=== PATIENT | male | born 1960 | race Caucasian/White ===

== ENCOUNTER 2019-10-11 06:29 | Inpatient (IN) ==
[2019-10-11 06:55] LABS: INR 1.1; PT Patient Result 12.1 SECS (9.6-12.2)
[2019-10-11] MEDS ORDERED: DIAZEPAM 5 MG TABLET PO ONE (08:00)
[2019-10-11] MEDS ORDERED: DIAZEPAM 5 MG TABLET ONE (08:42)
[2019-10-11] MEDS: SODIUM CHLORIDE 0.45% 1,000 ML IV SCH (09:10)
[2019-10-11] MEDS ORDERED: DIAZEPAM 5 MG TABLET PO STA (11:22)
[2019-10-11] MEDS ORDERED: MIDAZOLAM 2 MG/2 ML VIAL ONE (14:14)
[2019-10-11] MEDS ORDERED: ALPRAZolam 0.5 MG TABLET PO ONE (14:16)
[2019-10-11] MEDS ORDERED: ACETAMINOPHEN 325 MG TABLET PO PRN (16:23)
[2019-10-11] MEDS ORDERED: ONDANSETRON 4 MG/2 ML VIAL IV PRN (16:23)
[2019-10-11] MEDS ORDERED: MORPHINE 4 MG/1 ML VIAL IV PRN (16:23)
[2019-10-11] MEDS ORDERED: PROMETHAZINE 25 MG/1 ML VIAL IM PRN (16:23)
[2019-10-11 16:33] LABS: Basophils # 0.1 10*3/uL (0.0-0.2); Basophils % 0.3 % (0.0-0.8); Eosinophils % 0.1 % (0.00-10.9); Hematocrit 40.2 VOL% (42.0-52.0); Hemoglobin 12.6 GM/DL (14.0-18.0); Immature Granulocytes % 2.6 %; Lymphocytes # 1.2 10*3/uL (1.4-4.0); Lymphocytes % 6.2 % (21.2-54.2); Mean Corpuscular HGB Conc 31.3 GM/DL (32-36); Mean Corpuscular Volume 77.8 FL (87-102); Mean Platelet Volume 9.8 FL (9.6-12.0); Monocytes % 6.7 % (1.7-12.7); Neutrophils % 84.1 % (38.7-73.9); Platelet Count 601 T/CUMM (130-400); Red Blood Count 5.17 MC/CUMM (3.8-5.5); Red Cell Distribution Width 19.4 % (9.3-17.3); White Blood Count 18.9 T/CUMM (4-12)
[2019-10-11] MEDS ORDERED: ALBUTEROL 2.5 MG/3 ML NEB RESP TX PRN (16:36)
[2019-10-11] MEDS ORDERED: ONDANSETRON 4 MG TABLET PO PRN (16:36)
[2019-10-11] MEDS ORDERED: HydrOXYzine PAMOATE 25 MG CAPSULE PO PRN (16:36)
[2019-10-11 16:59] LABS: Albumin 2.3 G/DL (3.4-5.0); Bilirubin,Total 1.5 MG/DL (0.2-1.0); Calcium 8.8 MG/DL (8.5-10.1); Osmolality,Calculated 278.2 MOS/KG (273-304)
[2019-10-11 17:38] LABS: Thyroid Stimulating Hormone 5.21 uIU/ml (0.358-3.74)
[2019-10-11] MEDS: DEXTROSE 5% NACL 0.9% 1,000 ML IV SCH (18:27)
[2019-10-11] MEDS: ACETAMINOPHEN 500 MG TABLET PO PRN (18:28)
[2019-10-11] MEDS: ASPIRIN EC 81 MG TABLET PO SCH (18:28)
[2019-10-11] MEDS: LORATADINE 10 MG TABLET PO SCH (18:28)
[2019-10-11] MEDS: methylPREDNISolone SOD SUC 40 MG/1 ML VIAL IV SCH (18:29)
[2019-10-11] MEDS: LEVOFLOXACIN INJ 750 MG in PREMIX 1 EACH IV SCH (18:37)
[2019-10-11] MEDS ORDERED: ALBUTEROL/IPRATROPIUM 3 ML NEB RESP TX SCH (19:00)
[2019-10-11] MEDS: LEVALBUTEROL 0.63 MG/3 ML NEB RESP TX SCH (19:47)
[2019-10-11] MEDS: DORNASE ALFA 2.5 MG/2.5 ML VIAL RESP TX SCH (19:47)
[2019-10-11] MEDS ORDERED: SODIUM CHLORIDE 0.9% 3,100 ML IV ONE (20:48)
[2019-10-11] MEDS ORDERED: traZODone 50 MG TABLET PO SCH (21:00)
[2019-10-11] MEDS: PIPERACILLIN/TAZOBACTAM 3,375 MG in SODIUM CHLORIDE 0.9% 100 ML IV SCH (21:40)
[2019-10-11] MEDS ORDERED: NITROGLYCERIN SL 0.4 MG TABLET SL ONE (21:57)
[2019-10-11] MEDS ORDERED: NOREPINEPHRINE 8 MG in SODIUM CHLORIDE 0.9% 242 ML IV PRN (22:00)
[2019-10-11 22:24] LABS: Allen Test Positive
[2019-10-11 22:48] LABS: ABG Base Excess -2.5 MMOL/L (-2.5-2.5); ABG HCO3 22.3 MMOL/L (20-26); ABG Oxygen Saturation 94.8 % (95-100); ABG PCO2 33.4 MM HG (35-48); ABG PH 7.416 (7.35-7.45); ABG PO2 73.6 MM HG (80-95); ABG TCO2 19.6 MMOL/L (23-27)
[2019-10-11] MEDS: GABAPENTIN 600 MG TABLET PO SCH (22:54)
[2019-10-11] MEDS: TAMSULOSIN 0.4 MG CAPSULE PO SCH (22:54)
[2019-10-11] MEDS: NYSTATIN 500,000 UNIT/5 ML UDCUP PO SCH (22:54)
[2019-10-12] MEDS: LEVALBUTEROL 0.63 MG/3 ML NEB RESP TX SCH ×4 (00:09→19:35)
[2019-10-12 00:52] LABS: Apearance,Urine CLEAR (Clear); Bilirubin,Urine Negative (Negative); Blood, Urine Small mg/dL (Negative); Glucose,Urine (UA) Negative (Negative); Hyaline Casts,Urine 1 /LPF (0-3); Ketones,Urine Negative (Negative); Mucus,Urine Occasional /LPF (Occasional); Nitrite,Urine Negative (Negative); Protein,Urine Negative; RBC,Urine 1 /HPF (0-4); Urine Color Straw (Yellow); Urine Specific Gravity 1.011 (1.001-1.035); Urine Urobilinogen < 2.0 EU/DL (0.2-1.0); WBC,Urine 1 /HPF (0-6)
[2019-10-12] MEDS: VANCOMYCIN INJ 1,500 MG in SODIUM CHLORIDE 0.9% 500 ML IV SCH ×2 (01:00→15:07)
[2019-10-12] MEDS: methylPREDNISolone SOD SUC 40 MG/1 ML VIAL IV SCH ×3 (02:30→17:39)
[2019-10-12] MEDS: ACETAMINOPHEN 500 MG TABLET PO PRN (02:30)
[2019-10-12 04:58] LABS: Basophils % 0.1 % (0.0-0.8); Eosinophils % 0.1 % (0.00-10.9); Hematocrit 32.3 VOL% (42.0-52.0); Immature Granulocytes % 1.6 %; Immature Granulocytes Absolute 0.27 #; Lymphocytes # 0.6 10*3/uL (1.4-4.0); Lymphocytes % 3.7 % (21.2-54.2); Mean Corpuscular Volume 77.6 FL (87-102); Mean Platelet Volume 9.4 FL (9.6-12.0); Monocytes % 6.5 % (1.7-12.7); Platelet Count 408 T/CUMM (130-400); Red Blood Count 4.16 MC/CUMM (3.8-5.5); Red Cell Distribution Width 18.9 % (9.3-17.3); White Blood Count 16.9 T/CUMM (4-12)
[2019-10-12] MEDS: DEXTROSE 5% NACL 0.9% 1,000 ML IV SCH ×2 (05:13→05:45)
[2019-10-12 05:15] LABS: Albumin 1.8 G/DL (3.4-5.0); Bilirubin,Total 0.9 MG/DL (0.2-1.0); Calcium 8.2 MG/DL (8.5-10.1); Osmolality,Calculated 281.8 MOS/KG (273-304); Risk Ratio 1.81; Total Protein 6.3 G/DL (6.4-8.3); VLDL CHOLESTEROL 12.8 MG/DL
[2019-10-12] MEDS: PIPERACILLIN/TAZOBACTAM 3,375 MG in SODIUM CHLORIDE 0.9% 100 ML IV SCH ×3 (05:15→21:39)
[2019-10-12 05:22] LABS: Free T4 (Free Thyroxine) 1.43 NG/DL (0.76-1.46)
[2019-10-12 05:23] LABS: Band Neutrophils 2 % (0-10); Lymphocytes 2 % (20-55); Myelocytes 1 %; Segmented Neutrophils 89 % (50-85); Total Cells Counted 100
[2019-10-12 05:24] LABS: Hypochromasia 1+; Microcytosis 1+; Ovalocytes Slight; Tear Drop Cells Slight
[2019-10-12 07:09] LABS: Troponin I < 0.015 NG/ML (0.00-0.045)
[2019-10-12] MEDS ORDERED: DEXTROSE 5% NACL 0.9% 1,000 ML IV SCH (07:09)
[2019-10-12 07:16] LABS: Total Protein (Chem) 8.2 G/DL (6.4-8.3)
[2019-10-12] MEDS ORDERED: FUROSEMIDE 20 MG/2 ML VIAL IV ONE (08:00)
[2019-10-12] MEDS: DORNASE ALFA 2.5 MG/2.5 ML VIAL RESP TX SCH ×2 (08:38→19:41)
[2019-10-12] MEDS: SODIUM CHLORIDE 0.45% 1,000 ML IV SCH (08:41)
[2019-10-12 08:55] LABS: Albumin (SPE) 3.6 G/DL (3.2-5.3); Albumin (SPE) Rel % 43.3 %; Alpha 1 (SPE) 0.3 G/DL (0.1-0.4); Alpha 1 (SPE) Rel % 4.2 %; Alpha 2 (SPE) 1.3 G/DL (0.4-1.0); Alpha 2 (SPE) Rel % 15.4 %; Beta (SPE) 1.1 G/DL (0.5-1.1); Beta (SPE) Rel % 12.9 %; Gamma (SPE) Rel % 24.2 %
[2019-10-12] MEDS ORDERED: PANTOPRAZOLE 40 MG TABLET PO SCH (09:00)
[2019-10-12] MEDS: ALPRAZolam 0.5 MG TABLET PO PRN (09:12)
[2019-10-12] MEDS: LACTATED RINGERS 1,000 ML IV SCH (09:12)
[2019-10-12] MEDS: GABAPENTIN 600 MG TABLET PO SCH ×2 (09:12→21:18)
[2019-10-12] MEDS: NYSTATIN 500,000 UNIT/5 ML UDCUP PO SCH ×4 (09:12→21:19)
[2019-10-12] MEDS: PANTOPRAZOLE 40 MG TABLET PO SCH (09:13)
[2019-10-12] MEDS: ALLOPURINOL 300 MG TABLET PO SCH (09:13)
[2019-10-12] MEDS: ASPIRIN EC 81 MG TABLET PO SCH (09:13)
[2019-10-12] MEDS: LORATADINE 10 MG TABLET PO SCH (09:13)
[2019-10-12] MEDS ORDERED: ALUMINUM/MAGNES/SIMETH MAX STR 30 ML UDCUP PO PRN (15:47)
[2019-10-12] MEDS: LEVOFLOXACIN INJ 750 MG in PREMIX 1 EACH IV SCH (17:38)
[2019-10-12] MEDS: ENOXAPARIN 40 MG/0.4 ML SYRINGE SUBCUT SCH (17:39)
[2019-10-12 18:31] LABS: Folate 6.3 NG/ML (5.4-24.0)
[2019-10-12 19:26] LABS: Hepatitis B Surface Ag Quant < 0.10 Index; Hepatitis B Surface Ag Result Negative (Negative); Hepatitis C Virus Ab Quant 0.17 Index; Hepatitis C Virus Ab Result Negative (Negative)
[2019-10-12] MEDS: MIRTAZAPINE 15 MG TABLET PO SCH (21:18)
[2019-10-12] MEDS: TAMSULOSIN 0.4 MG CAPSULE PO SCH (21:19)
[2019-10-13] MEDS: LEVALBUTEROL 0.63 MG/3 ML NEB RESP TX SCH ×4 (00:36→20:21)
[2019-10-13] MEDS: methylPREDNISolone SOD SUC 40 MG/1 ML VIAL IV SCH ×4 (02:12→21:43)
[2019-10-13] MEDS: VANCOMYCIN INJ 1,500 MG in SODIUM CHLORIDE 0.9% 500 ML IV SCH ×2 (02:15→13:41)
[2019-10-13 05:03] LABS: Basophils % 0.2 % (0.0-0.8); Hematocrit 30.9 VOL% (42.0-52.0); Hemoglobin 9.8 GM/DL (14.0-18.0); Immature Granulocytes % 2.3 %; Immature Granulocytes Absolute 0.46 #; Lymphocytes # 0.7 10*3/uL (1.4-4.0); Lymphocytes % 3.5 % (21.2-54.2); Mean Corpuscular HGB Conc 31.7 GM/DL (32-36); Mean Corpuscular Volume 77.4 FL (87-102); Mean Platelet Volume 9.7 FL (9.6-12.0); Monocytes % 3.8 % (1.7-12.7); Neutrophils % 90.2 % (38.7-73.9); Platelet Count 481 T/CUMM (130-400); Red Blood Count 3.99 MC/CUMM (3.8-5.5); White Blood Count 19.9 T/CUMM (4-12)
[2019-10-13 05:40] LABS: Albumin 1.7 G/DL (3.4-5.0); Bilirubin,Total 0.5 MG/DL (0.2-1.0); Calcium 8.7 MG/DL (8.5-10.1); Total Protein 6.5 G/DL (6.4-8.3)
[2019-10-13] MEDS: PIPERACILLIN/TAZOBACTAM 3,375 MG in SODIUM CHLORIDE 0.9% 100 ML IV SCH ×3 (06:27→21:44)
[2019-10-13 06:36] LABS: Lymphocytes 1 % (20-55); Platelet Estimate Normal; Segmented Neutrophils 96 % (50-85); Total Cells Counted 100
[2019-10-13 06:37] LABS: Anisocytosis Slight; Hypochromasia 1+; Microcytosis 2+
[2019-10-13 06:38] LABS: Ovalocytes Slight
[2019-10-13 07:45] LABS: Total Protein 24 Hr Ur Result 1044 MG/24HR (0-149.1); Total Volume,Urine 4350 ML (400-2000)
[2019-10-13] MEDS: DORNASE ALFA 2.5 MG/2.5 ML VIAL RESP TX SCH ×2 (07:46→20:31)
[2019-10-13] MEDS: NYSTATIN 500,000 UNIT/5 ML UDCUP PO SCH ×4 (09:11→21:43)
[2019-10-13] MEDS: LORATADINE 10 MG TABLET PO SCH (09:12)
[2019-10-13] MEDS: ALPRAZolam 0.5 MG TABLET PO PRN ×2 (09:12→15:35)
[2019-10-13] MEDS: GABAPENTIN 600 MG TABLET PO SCH ×2 (09:12→21:43)
[2019-10-13] MEDS: ASPIRIN EC 81 MG TABLET PO SCH (09:12)
[2019-10-13] MEDS: PANTOPRAZOLE 40 MG TABLET PO SCH (09:12)
[2019-10-13] MEDS: LACTATED RINGERS 1,000 ML IV SCH (09:19)
[2019-10-13] MEDS: ALLOPURINOL 300 MG TABLET PO SCH (09:26)
[2019-10-13] MEDS ORDERED: GLUCAGON 1 MG VIAL IM PRN (09:57)
[2019-10-13] MEDS ORDERED: DEXTROSE 50% 25 GM/50 ML VIAL IV PRN (09:57)
[2019-10-13] MEDS: INSULIN REGULAR 100 UNIT/ML SUBCUT SCH ×3 (12:28→21:42)
[2019-10-13] MEDS: ENOXAPARIN 40 MG/0.4 ML SYRINGE SUBCUT SCH (15:35)
[2019-10-13] MEDS: LEVOFLOXACIN INJ 750 MG in PREMIX 1 EACH IV SCH (17:15)
[2019-10-13] MEDS: TAMSULOSIN 0.4 MG CAPSULE PO SCH (21:43)
[2019-10-13] MEDS: MIRTAZAPINE 15 MG TABLET PO SCH (21:47)
[2019-10-14] MEDS: LEVALBUTEROL 0.63 MG/3 ML NEB RESP TX SCH ×4 (00:33→19:40)
[2019-10-14] MEDS: VANCOMYCIN INJ 1,500 MG in SODIUM CHLORIDE 0.9% 500 ML IV SCH ×2 (01:39→17:43)
[2019-10-14] MEDS: PIPERACILLIN/TAZOBACTAM 3,375 MG in SODIUM CHLORIDE 0.9% 100 ML IV SCH ×3 (05:00→22:38)
[2019-10-14 05:57] LABS: Basophils # 0.1 10*3/uL (0.0-0.2); Basophils % 0.3 % (0.0-0.8); Hematocrit 33.5 VOL% (42.0-52.0); Hemoglobin 10.3 GM/DL (14.0-18.0); Immature Granulocytes % 4.5 %; Immature Granulocytes Absolute 1.03 #; Lymphocytes # 0.6 10*3/uL (1.4-4.0); Lymphocytes % 2.8 % (21.2-54.2); Mean Corpuscular HGB Conc 30.7 GM/DL (32-36); Mean Corpuscular Volume 78.6 FL (87-102); Mean Platelet Volume 9.5 FL (9.6-12.0); Monocytes % 3.1 % (1.7-12.7); Neutrophils % 89.3 % (38.7-73.9); Platelet Count 520 T/CUMM (130-400); Red Blood Count 4.26 MC/CUMM (3.8-5.5); Red Cell Distribution Width 19.2 % (9.3-17.3); White Blood Count 22.8 T/CUMM (4-12)
[2019-10-14 06:27] LABS: Albumin 1.7 G/DL (3.4-5.0); Calcium 9.1 MG/DL (8.5-10.1); Osmolality,Calculated 287.8 MOS/KG (273-304); Total Protein 6.7 G/DL (6.4-8.3)
[2019-10-14 07:08] LABS: Lymphocytes 4 % (20-55); Platelet Estimate Increased; Segmented Neutrophils 95 % (50-85); Total Cells Counted 100
[2019-10-14] MEDS: methylPREDNISolone SOD SUC 40 MG/1 ML VIAL IV SCH ×2 (08:19→22:35)
[2019-10-14] MEDS: LORATADINE 10 MG TABLET PO SCH (08:20)
[2019-10-14] MEDS: PANTOPRAZOLE 40 MG TABLET PO SCH (08:21)
[2019-10-14] MEDS: GABAPENTIN 600 MG TABLET PO SCH ×2 (08:22→22:29)
[2019-10-14] MEDS: ALLOPURINOL 300 MG TABLET PO SCH (08:22)
[2019-10-14] MEDS: ASPIRIN EC 81 MG TABLET PO SCH (08:22)
[2019-10-14] MEDS: NYSTATIN 500,000 UNIT/5 ML UDCUP PO SCH ×4 (08:24→22:35)
[2019-10-14] MEDS: INSULIN REGULAR 100 UNIT/ML SUBCUT SCH ×4 (08:28→22:35)
[2019-10-14] MEDS: ALPRAZolam 0.5 MG TABLET PO PRN ×2 (08:29→17:52)
[2019-10-14] MEDS: DORNASE ALFA 2.5 MG/2.5 ML VIAL RESP TX SCH ×2 (09:00→19:40)
[2019-10-14 09:12] LABS: Immuno Free Light Chain Kappa 4.65 MG/DL (0.33-1.94); Immuno Free Light Chain Lambda 2.59 MG/DL (0.57-2.63); Immuno Free Light Chain Ratio 1.8 MG/DL (0.26-1.65)
[2019-10-14] MEDS ORDERED: SODIUM CHLORIDE 0.9% 250 ML IV ONE (10:31)
[2019-10-14] MEDS ORDERED: MAGNESIUM HYDROXIDE SUSP 30 ML UDCUP PO PRN (12:45)
[2019-10-14] MEDS: busPIRone 5 MG TABLET PO SCH ×2 (13:27→22:30)
[2019-10-14] MEDS: DOCUSATE SODIUM 100 MG CAPSULE PO SCH ×2 (13:27→22:29)
[2019-10-14] MEDS: FLUCONAZOLE 200 MG TABLET PO SCH (13:27)
[2019-10-14] MEDS: ENOXAPARIN 40 MG/0.4 ML SYRINGE SUBCUT SCH (17:43)
[2019-10-14] MEDS: TAMSULOSIN 0.4 MG CAPSULE PO SCH (22:29)
[2019-10-14] MEDS: DOXYCYCLINE HYCLATE 100 MG CAPSULE PO SCH (22:48)
[2019-10-14] MEDS: MIRTAZAPINE 15 MG TABLET PO SCH (22:48)
[2019-10-15] MEDS: LEVALBUTEROL 0.63 MG/3 ML NEB RESP TX SCH ×4 (00:09→20:15)
[2019-10-15 05:18] LABS: Basophils # 0.1 10*3/uL (0.0-0.2); Basophils % 0.5 % (0.0-0.8); Hematocrit 34.8 VOL% (42.0-52.0); Hemoglobin 10.8 GM/DL (14.0-18.0); Immature Granulocytes % 6.4 %; Immature Granulocytes Absolute 1.27 #; Lymphocytes # 0.9 10*3/uL (1.4-4.0); Lymphocytes % 4.5 % (21.2-54.2); Mean Corpuscular Volume 79.3 FL (87-102); Mean Platelet Volume 9.2 FL (9.6-12.0); Monocytes % 3.9 % (1.7-12.7); Neutrophils % 84.7 % (38.7-73.9); Platelet Count 473 T/CUMM (130-400); Red Blood Count 4.39 MC/CUMM (3.8-5.5); Red Cell Distribution Width 19.5 % (9.3-17.3); White Blood Count 19.9 T/CUMM (4-12)
[2019-10-15 05:35] LABS: Bilirubin,Total 0.5 MG/DL (0.2-1.0); Calcium 8.8 MG/DL (8.5-10.1); Osmolality,Calculated 291.3 MOS/KG (273-304)
[2019-10-15 05:41] LABS: Hypochromasia 1+; Lymphocytes 4 % (20-55); Microcytosis 1+; Myelocytes 2 %; Ovalocytes Slight; Segmented Neutrophils 91 % (50-85); Total Cells Counted 100
[2019-10-15] MEDS: PIPERACILLIN/TAZOBACTAM 3,375 MG in SODIUM CHLORIDE 0.9% 100 ML IV SCH ×3 (06:07→21:27)
[2019-10-15] MEDS: DORNASE ALFA 2.5 MG/2.5 ML VIAL RESP TX SCH ×2 (07:02→20:15)
[2019-10-15] MEDS: DOXYCYCLINE HYCLATE 100 MG CAPSULE PO SCH ×2 (08:38→20:13)
[2019-10-15] MEDS: ALPRAZolam 0.5 MG TABLET PO PRN ×2 (08:38→20:22)
[2019-10-15] MEDS: ALLOPURINOL 300 MG TABLET PO SCH (08:38)
[2019-10-15] MEDS: busPIRone 5 MG TABLET PO SCH ×2 (08:38→20:13)
[2019-10-15] MEDS: DOCUSATE SODIUM 100 MG CAPSULE PO SCH ×2 (08:38→20:14)
[2019-10-15] MEDS: GABAPENTIN 600 MG TABLET PO SCH ×2 (08:39→20:13)
[2019-10-15] MEDS: FLUCONAZOLE 200 MG TABLET PO SCH (08:39)
[2019-10-15] MEDS: LORATADINE 10 MG TABLET PO SCH (08:39)
[2019-10-15] MEDS: ASPIRIN EC 81 MG TABLET PO SCH (08:39)
[2019-10-15] MEDS: NYSTATIN 500,000 UNIT/5 ML UDCUP PO SCH ×4 (08:39→20:13)
[2019-10-15] MEDS: PANTOPRAZOLE 40 MG TABLET PO SCH (08:39)
[2019-10-15] MEDS: INSULIN REGULAR 100 UNIT/ML SUBCUT SCH ×4 (08:40→20:11)
[2019-10-15] MEDS: methylPREDNISolone SOD SUC 40 MG/1 ML VIAL IV SCH ×2 (08:40→20:14)
[2019-10-15] MEDS: VANCOMYCIN INJ 1,500 MG in SODIUM CHLORIDE 0.9% 500 ML IV SCH (09:55)
[2019-10-15] MEDS ORDERED: SODIUM POLYSTYRENE SULFATE 15 GM/60 ML BOTTLE PO STA (13:32)
[2019-10-15] MEDS: ENOXAPARIN 40 MG/0.4 ML SYRINGE SUBCUT SCH (16:49)
[2019-10-15] MEDS: MIRTAZAPINE 15 MG TABLET PO SCH (20:13)
[2019-10-15] MEDS: TAMSULOSIN 0.4 MG CAPSULE PO SCH (20:14)
[2019-10-16] MEDS: LEVALBUTEROL 0.63 MG/3 ML NEB RESP TX SCH ×4 (00:27→19:04)
[2019-10-16] MEDS: VANCOMYCIN INJ 1,500 MG in SODIUM CHLORIDE 0.9% 500 ML IV SCH ×2 (03:01→21:18)
[2019-10-16] MEDS: PIPERACILLIN/TAZOBACTAM 3,375 MG in SODIUM CHLORIDE 0.9% 100 ML IV SCH ×3 (06:30→21:21)
[2019-10-16 06:32] LABS: Basophils # 0.1 10*3/uL (0.0-0.2); Basophils % 0.7 % (0.0-0.8); Hematocrit 33.1 VOL% (42.0-52.0); Hemoglobin 10.5 GM/DL (14.0-18.0); Immature Granulocytes % 9.6 %; Immature Granulocytes Absolute 1.87 #; Lymphocytes # 1.3 10*3/uL (1.4-4.0); Lymphocytes % 6.4 % (21.2-54.2); Mean Corpuscular HGB Conc 31.7 GM/DL (32-36); Mean Corpuscular Volume 78.6 FL (87-102); Mean Platelet Volume 9.5 FL (9.6-12.0); Monocytes % 3.7 % (1.7-12.7); Neutrophils % 79.6 % (38.7-73.9); Platelet Count 453 T/CUMM (130-400); Red Blood Count 4.21 MC/CUMM (3.8-5.5); Red Cell Distribution Width 19.6 % (9.3-17.3); White Blood Count 19.4 T/CUMM (4-12)
[2019-10-16 07:00] LABS: Hypochromasia 1+; Lymphocytes 4 % (20-55); Microcytosis 1+; Myelocytes 4 %; Segmented Neutrophils 89 % (50-85); Total Cells Counted 100
[2019-10-16 07:01] LABS: Albumin 1.9 G/DL (3.4-5.0); Bilirubin,Total 0.7 MG/DL (0.2-1.0); Calcium 8.5 MG/DL (8.5-10.1); Osmolality,Calculated 291.3 MOS/KG (273-304); Platelet Estimate Increased; Total Protein 6.4 G/DL (6.4-8.3)
[2019-10-16] MEDS: DORNASE ALFA 2.5 MG/2.5 ML VIAL RESP TX SCH ×2 (07:26→19:06)
[2019-10-16] MEDS: LORATADINE 10 MG TABLET PO SCH (08:44)
[2019-10-16] MEDS: NYSTATIN 500,000 UNIT/5 ML UDCUP PO SCH ×4 (08:44→21:20)
[2019-10-16] MEDS: ALPRAZolam 0.5 MG TABLET PO PRN ×3 (08:45→21:35)
[2019-10-16] MEDS: DOCUSATE SODIUM 100 MG CAPSULE PO SCH ×2 (08:45→21:21)
[2019-10-16] MEDS: ALLOPURINOL 300 MG TABLET PO SCH (08:45)
[2019-10-16] MEDS: busPIRone 5 MG TABLET PO SCH ×2 (08:45→21:21)
[2019-10-16] MEDS: ASPIRIN EC 81 MG TABLET PO SCH (08:45)
[2019-10-16] MEDS: FLUCONAZOLE 200 MG TABLET PO SCH (08:45)
[2019-10-16] MEDS: GABAPENTIN 600 MG TABLET PO SCH ×2 (08:46→21:20)
[2019-10-16] MEDS: INSULIN REGULAR 100 UNIT/ML SUBCUT SCH ×4 (08:46→21:21)
[2019-10-16] MEDS: DOXYCYCLINE HYCLATE 100 MG CAPSULE PO SCH ×2 (08:46→21:19)
[2019-10-16] MEDS: PANTOPRAZOLE 40 MG TABLET PO SCH (08:46)
[2019-10-16] MEDS: methylPREDNISolone SOD SUC 40 MG/1 ML VIAL IV SCH ×2 (08:47→21:19)
[2019-10-16] MEDS: ENOXAPARIN 40 MG/0.4 ML SYRINGE SUBCUT SCH (17:14)
[2019-10-16] MEDS: MIRTAZAPINE 15 MG TABLET PO SCH (21:19)
[2019-10-16] MEDS: TAMSULOSIN 0.4 MG CAPSULE PO SCH (21:22)
[2019-10-17] MEDS: LEVALBUTEROL 0.63 MG/3 ML NEB RESP TX SCH ×4 (00:54→20:36)
[2019-10-17] MEDS: PIPERACILLIN/TAZOBACTAM 3,375 MG in SODIUM CHLORIDE 0.9% 100 ML IV SCH ×3 (05:07→21:41)
[2019-10-17 06:55] LABS: Basophils # 0.2 10*3/uL (0.0-0.2); Basophils % 0.7 % (0.0-0.8); Hematocrit 33.4 VOL% (42.0-52.0); Hemoglobin 10.4 GM/DL (14.0-18.0); Immature Granulocytes % 10.2 %; Immature Granulocytes Absolute 2.28 #; Lymphocytes # 1.4 10*3/uL (1.4-4.0); Lymphocytes % 6.1 % (21.2-54.2); Mean Corpuscular HGB Conc 31.1 GM/DL (32-36); Mean Platelet Volume 9.1 FL (9.6-12.0); Monocytes % 3.1 % (1.7-12.7); Neutrophils % 79.9 % (38.7-73.9); Platelet Count 405 T/CUMM (130-400); Red Blood Count 4.23 MC/CUMM (3.8-5.5); Red Cell Distribution Width 19.7 % (9.3-17.3); White Blood Count 22.4 T/CUMM (4-12)
[2019-10-17 07:16] LABS: Hypochromasia 1+; Lymphocytes 7 % (20-55); Metamyelocytes 2 %; Microcytosis 1+; Segmented Neutrophils 89 % (50-85); Total Cells Counted 100
[2019-10-17 07:17] LABS: Ovalocytes Slight; Platelet Estimate Increased
[2019-10-17] MEDS: DORNASE ALFA 2.5 MG/2.5 ML VIAL RESP TX SCH ×2 (07:19→20:40)
[2019-10-17 07:32] LABS: Alanine Aminotransferase 103 U/L (16-61); Albumin 1.9 G/DL (3.4-5.0); Alkaline Phosphatase 118 U/L (45-117); Aspartate Amino Transferase 14 U/L (0-37); Bilirubin,Total < 0.39 MG/DL (0.2-1.0); Blood Urea Nitrogen 42 MG/DL (7-18); Calcium 8.7 MG/DL (8.5-10.1); Estimated Glom Filtration Rate 79 ML/MIN; Glucose 154 MG/DL (74-106); Osmolality,Calculated 290.5 MOS/KG (273-304); Total Protein 6.1 G/DL (6.4-8.3)
[2019-10-17 08:40] LABS: Albumin (UPE) 301.7 MG/24H; Albumin (UPE) Rel % 28.9 %; Alpha 1 (UPE) 67.9 MG/24H; Alpha 1 (UPE) Rel % 6.5 %; Alpha 2 (UPE) 305.9 MG/24H; Alpha 2 (UPE) Rel % 29.3 %; Beta (UPE) 286.1 MG/24H; Beta (UPE) Rel % 27.4 %; Gamma (UPE) 82.5 MG/24H; Gamma (UPE) Rel % 7.9 %
[2019-10-17] MEDS: DOXYCYCLINE HYCLATE 100 MG CAPSULE PO SCH ×2 (09:31→21:41)
[2019-10-17] MEDS: busPIRone 5 MG TABLET PO SCH ×2 (09:31→21:40)
[2019-10-17] MEDS: ALLOPURINOL 300 MG TABLET PO SCH (09:32)
[2019-10-17] MEDS: PANTOPRAZOLE 40 MG TABLET PO SCH (09:32)
[2019-10-17] MEDS: FLUCONAZOLE 200 MG TABLET PO SCH (09:32)
[2019-10-17] MEDS: DOCUSATE SODIUM 100 MG CAPSULE PO SCH ×2 (09:32→21:41)
[2019-10-17] MEDS: GABAPENTIN 600 MG TABLET PO SCH ×2 (09:32→21:40)
[2019-10-17] MEDS: LORATADINE 10 MG TABLET PO SCH (09:32)
[2019-10-17] MEDS: ASPIRIN EC 81 MG TABLET PO SCH (09:32)
[2019-10-17] MEDS: INSULIN REGULAR 100 UNIT/ML SUBCUT SCH ×4 (09:33→23:08)
[2019-10-17] MEDS: NYSTATIN 500,000 UNIT/5 ML UDCUP PO SCH ×4 (09:34→21:40)
[2019-10-17] MEDS: ALPRAZolam 0.5 MG TABLET PO PRN ×3 (09:38→21:41)
[2019-10-17] MEDS: VANCOMYCIN INJ 1,500 MG in SODIUM CHLORIDE 0.9% 500 ML IV SCH ×2 (11:12→21:39)
[2019-10-17] MEDS: methylPREDNISolone SOD SUC 40 MG/1 ML VIAL IV SCH ×2 (11:12→21:41)
[2019-10-17] MEDS: carvediloL 6.25 MG TABLET PO SCH ×2 (13:14→21:41)
[2019-10-17] MEDS: ENOXAPARIN 40 MG/0.4 ML SYRINGE SUBCUT SCH (18:25)
[2019-10-17] MEDS: TAMSULOSIN 0.4 MG CAPSULE PO SCH (21:40)
[2019-10-17] MEDS: MIRTAZAPINE 15 MG TABLET PO SCH (21:41)
[2019-10-18] MEDS: LEVALBUTEROL 0.63 MG/3 ML NEB RESP TX SCH ×4 (00:43→19:41)
[2019-10-18 05:33] LABS: Basophils # 0.1 10*3/uL (0.0-0.2); Basophils % 0.5 % (0.0-0.8); Hematocrit 33.2 VOL% (42.0-52.0); Hemoglobin 10.3 GM/DL (14.0-18.0); Immature Granulocytes Absolute 2.09 #; Lymphocytes # 1.2 10*3/uL (1.4-4.0); Lymphocytes % 5.1 % (21.2-54.2); Mean Corpuscular Volume 79.2 FL (87-102); Mean Platelet Volume 9.6 FL (9.6-12.0); Monocytes % 2.5 % (1.7-12.7); Neutrophils % 82.9 % (38.7-73.9); Platelet Count 376 T/CUMM (130-400); Red Blood Count 4.19 MC/CUMM (3.8-5.5); Red Cell Distribution Width 20.4 % (9.3-17.3); White Blood Count 23.2 T/CUMM (4-12)
[2019-10-18] MEDS: PIPERACILLIN/TAZOBACTAM 3,375 MG in SODIUM CHLORIDE 0.9% 100 ML IV SCH ×3 (05:33→21:26)
[2019-10-18 05:36] LABS: Bilirubin,Total 0.4 MG/DL (0.2-1.0); Calcium 8.4 MG/DL (8.5-10.1)
[2019-10-18 05:59] LABS: Band Neutrophils 1 % (0-10); Hypochromasia 1+; Lymphocytes 7 % (20-55); Myelocytes 1 %; Segmented Neutrophils 88 % (50-85); Total Cells Counted 100
[2019-10-18 06:00] LABS: Anisocytosis 1+; Microcytosis 1+; Ovalocytes Slight
[2019-10-18] MEDS ORDERED: MIDAZOLAM 2 MG/2 ML VIAL ONE ×2 (06:55→08:32)
[2019-10-18] MEDS ORDERED: MEPERIDINE 50 MG/1 ML VIAL IM ONE (07:00)
[2019-10-18] MEDS ORDERED: PROMETHAZINE 25 MG/1 ML VIAL IM ONE (07:00)
[2019-10-18] MEDS: DORNASE ALFA 2.5 MG/2.5 ML VIAL RESP TX SCH ×2 (07:29→19:41)
[2019-10-18] MEDS ORDERED: MIDAZOLAM 2 MG/2 ML VIAL IV ONE (07:30)
[2019-10-18] MEDS ORDERED: LIDOCAINE 2% VISCOUS 100 ML BOTTLE SWISH/SPIT ONE (07:30)
[2019-10-18] MEDS ORDERED: LIDOCAINE 2% 20 ML VIAL RESP TX ONE (07:30)
[2019-10-18] MEDS ORDERED: LIDOCAINE 1% 20 ML VIAL MISC INJ ONE (07:30)
[2019-10-18] MEDS ORDERED: hydrALAZINE 20 MG/1 ML VIAL IV PRN (07:56)
[2019-10-18] MEDS: methylPREDNISolone SOD SUC 40 MG/1 ML VIAL IV SCH ×2 (10:20→20:56)
[2019-10-18] MEDS: NYSTATIN 500,000 UNIT/5 ML UDCUP PO SCH ×4 (10:20→20:56)
[2019-10-18] MEDS: DOCUSATE SODIUM 100 MG CAPSULE PO SCH ×2 (10:21→20:58)
[2019-10-18] MEDS: ASPIRIN EC 81 MG TABLET PO SCH (10:21)
[2019-10-18] MEDS: FLUCONAZOLE 200 MG TABLET PO SCH (10:21)
[2019-10-18] MEDS: GABAPENTIN 600 MG TABLET PO SCH ×2 (10:21→20:58)
[2019-10-18] MEDS: ALLOPURINOL 300 MG TABLET PO SCH (10:21)
[2019-10-18] MEDS: PANTOPRAZOLE 40 MG TABLET PO SCH (10:21)
[2019-10-18] MEDS: LORATADINE 10 MG TABLET PO SCH (10:21)
[2019-10-18] MEDS: carvediloL 6.25 MG TABLET PO SCH ×2 (10:21→20:58)
[2019-10-18] MEDS: INSULIN REGULAR 100 UNIT/ML SUBCUT SCH ×4 (10:22→20:56)
[2019-10-18] MEDS: DOXYCYCLINE HYCLATE 100 MG CAPSULE PO SCH ×2 (10:28→20:58)
[2019-10-18] MEDS: ALPRAZolam 0.5 MG TABLET PO PRN ×3 (10:28→20:57)
[2019-10-18] MEDS: busPIRone 5 MG TABLET PO SCH ×2 (10:28→20:57)
[2019-10-18] MEDS: VANCOMYCIN INJ 1,500 MG in SODIUM CHLORIDE 0.9% 500 ML IV SCH ×3 (11:27→21:25)
[2019-10-18] MEDS: ENOXAPARIN 40 MG/0.4 ML SYRINGE SUBCUT SCH (17:45)
[2019-10-18 19:56] LABS: QuantiFERON-Tb Gold Pl Indeterminate (Negative); TB2 Ag Minus Result 0 IU/mL
[2019-10-18] MEDS: TAMSULOSIN 0.4 MG CAPSULE PO SCH (20:57)
[2019-10-18] MEDS: MIRTAZAPINE 15 MG TABLET PO SCH (20:57)
[2019-10-19] MEDS: PIPERACILLIN/TAZOBACTAM 3,375 MG in SODIUM CHLORIDE 0.9% 100 ML IV SCH (06:21)
[2019-10-19] MEDS: LEVALBUTEROL 0.63 MG/3 ML NEB RESP TX SCH ×3 (08:03→19:20)
[2019-10-19] MEDS: DORNASE ALFA 2.5 MG/2.5 ML VIAL RESP TX SCH ×2 (08:11→19:27)
[2019-10-19 08:30] LABS: Basophils # 0.1 10*3/uL (0.0-0.2); Basophils % 0.5 % (0.0-0.8); Hemoglobin 11.4 GM/DL (14.0-18.0); Immature Granulocytes % 8.4 %; Immature Granulocytes Absolute 2.23 #; Lymphocytes # 1.4 10*3/uL (1.4-4.0); Lymphocytes % 5.2 % (21.2-54.2); Mean Corpuscular HGB Conc 30.8 GM/DL (32-36); Mean Corpuscular Volume 80.1 FL (87-102); Mean Platelet Volume 9.2 FL (9.6-12.0); Monocytes % 3.2 % (1.7-12.7); Neutrophils % 82.7 % (38.7-73.9); Platelet Count 400 T/CUMM (130-400); Red Blood Count 4.62 MC/CUMM (3.8-5.5); Red Cell Distribution Width 21.2 % (9.3-17.3); White Blood Count 26.6 T/CUMM (4-12)
[2019-10-19] MEDS: INSULIN REGULAR 100 UNIT/ML SUBCUT SCH ×4 (08:43→21:37)
[2019-10-19 08:52] LABS: Hypochromasia 1+; Lymphocytes 6 % (20-55); Platelet Estimate Adequate; Segmented Neutrophils 86 % (50-85); Total Cells Counted 100
[2019-10-19 08:53] LABS: Microcytosis 1+
[2019-10-19 08:55] LABS: Calcium 8.5 MG/DL (8.5-10.1); Osmolality,Calculated 291.3 MOS/KG (273-304)
[2019-10-19] MEDS: methylPREDNISolone SOD SUC 40 MG/1 ML VIAL IV SCH ×2 (09:23→21:36)
[2019-10-19] MEDS: carvediloL 6.25 MG TABLET PO SCH ×2 (09:28→21:36)
[2019-10-19] MEDS: LORATADINE 10 MG TABLET PO SCH (09:28)
[2019-10-19] MEDS: busPIRone 5 MG TABLET PO SCH ×2 (09:28→21:35)
[2019-10-19] MEDS: ASPIRIN EC 81 MG TABLET PO SCH (09:28)
[2019-10-19] MEDS: DOCUSATE SODIUM 100 MG CAPSULE PO SCH ×2 (09:28→21:36)
[2019-10-19] MEDS: GABAPENTIN 600 MG TABLET PO SCH ×2 (09:29→21:36)
[2019-10-19] MEDS: PANTOPRAZOLE 40 MG TABLET PO SCH (09:29)
[2019-10-19] MEDS: FLUCONAZOLE 200 MG TABLET PO SCH (09:29)
[2019-10-19] MEDS: ALLOPURINOL 300 MG TABLET PO SCH (09:29)
[2019-10-19] MEDS: NYSTATIN 500,000 UNIT/5 ML UDCUP PO SCH ×4 (09:29→21:42)
[2019-10-19] MEDS: DOXYCYCLINE HYCLATE 100 MG CAPSULE PO SCH ×2 (09:29→21:35)
[2019-10-19] MEDS: VANCOMYCIN INJ 1,500 MG in SODIUM CHLORIDE 0.9% 500 ML IV SCH (11:42)
[2019-10-19] MEDS: ALPRAZolam 0.5 MG TABLET PO PRN ×2 (15:01→21:35)
[2019-10-19] MEDS: ENOXAPARIN 40 MG/0.4 ML SYRINGE SUBCUT SCH (17:48)
[2019-10-19] MEDS: MIRTAZAPINE 15 MG TABLET PO SCH (21:35)
[2019-10-19] MEDS: TAMSULOSIN 0.4 MG CAPSULE PO SCH (21:35)
[2019-10-20] MEDS: LEVALBUTEROL 0.63 MG/3 ML NEB RESP TX SCH ×3 (00:20→08:02)
[2019-10-20] MEDS: VANCOMYCIN INJ 1,500 MG in SODIUM CHLORIDE 0.9% 500 ML IV SCH (02:05)
[2019-10-20 06:07] LABS: Basophils # 0.1 10*3/uL (0.0-0.2); Basophils % 0.4 % (0.0-0.8); Hematocrit 38.2 VOL% (42.0-52.0); Hemoglobin 11.6 GM/DL (14.0-18.0); Immature Granulocytes % 7.5 %; Immature Granulocytes Absolute 1.71 #; Lymphocytes % 4.3 % (21.2-54.2); Mean Corpuscular HGB Conc 30.4 GM/DL (32-36); Mean Corpuscular Volume 81.1 FL (87-102); Mean Platelet Volume 9.2 FL (9.6-12.0); Monocytes % 2.5 % (1.7-12.7); Neutrophils % 85.3 % (38.7-73.9); Platelet Count 363 T/CUMM (130-400); Red Blood Count 4.71 MC/CUMM (3.8-5.5); Red Cell Distribution Width 21.6 % (9.3-17.3); White Blood Count 22.7 T/CUMM (4-12)
[2019-10-20 06:28] LABS: Calcium 8.6 MG/DL (8.5-10.1); Osmolality,Calculated 292.5 MOS/KG (273-304)
[2019-10-20 06:41] LABS: Eosinophils 1 % (0-10); Lymphocytes 4 % (20-55); Platelet Estimate Normal; Polychromasia Few; Segmented Neutrophils 91 % (50-85); Total Cells Counted 100
[2019-10-20] MEDS: DORNASE ALFA 2.5 MG/2.5 ML VIAL RESP TX SCH (08:02)
[2019-10-20] MEDS: INSULIN REGULAR 100 UNIT/ML SUBCUT SCH ×2 (08:26→14:25)
[2019-10-20] MEDS: busPIRone 5 MG TABLET PO SCH (08:27)
[2019-10-20] MEDS: ASPIRIN EC 81 MG TABLET PO SCH (08:27)
[2019-10-20] MEDS: DOCUSATE SODIUM 100 MG CAPSULE PO SCH (08:29)
[2019-10-20] MEDS: LORATADINE 10 MG TABLET PO SCH (08:29)
[2019-10-20] MEDS: carvediloL 6.25 MG TABLET PO SCH (08:29)
[2019-10-20] MEDS: FLUCONAZOLE 200 MG TABLET PO SCH (08:29)
[2019-10-20] MEDS: ALLOPURINOL 300 MG TABLET PO SCH (08:30)
[2019-10-20] MEDS: PANTOPRAZOLE 40 MG TABLET PO SCH (08:30)
[2019-10-20] MEDS: DOXYCYCLINE HYCLATE 100 MG CAPSULE PO SCH (08:30)
[2019-10-20] MEDS: GABAPENTIN 600 MG TABLET PO SCH (08:30)
[2019-10-20] MEDS: NYSTATIN 500,000 UNIT/5 ML UDCUP PO SCH ×2 (08:31→13:08)
[2019-10-20] MEDS: ALPRAZolam 0.5 MG TABLET PO PRN ×2 (08:31→13:08)
[2019-10-20] MEDS: methylPREDNISolone SOD SUC 40 MG/1 ML VIAL IV SCH (08:34)
[2019-10-20] MEDS ORDERED: LABETALOL 20 MG/4 ML SYRINGE IV ONE (12:52)
[2019-10-20] MEDS ORDERED: carvediloL 6.25 MG TABLET PO ONE (13:00)
[2019-10-20 14:37] VITALS: BP 147/85
== END 2019-10-20 14:47 | disposition home or self-care (01) | DRG 871 ==
LOC: N.RAD 06:29 → N.SDSINP 06:31 → SUATTDRO 16:23 → N.4E 18:09 → N.CC 21:17 → N.TELES 10-12 19:04
PROVIDERS: ADMIT Hospitalist; ATTEND Internal Medicine
PROC: BRONCHB (2019-10-18 07:35)

== ENCOUNTER 2019-11-08 21:24 | Inpatient (IN) ==
[2019-11-08] MEDS ORDERED: ASPIRIN CHEW 81 MG TABLET PO STA (22:39)
[2019-11-08] MEDS ORDERED: FUROSEMIDE 40 MG/4 ML VIAL IV STA (22:39)
[2019-11-08] MEDS ORDERED: cefTRIAXone 1,000 MG in SODIUM CHLORIDE 0.9% 100 ML IV STA (22:39)
[2019-11-08] MEDS ORDERED: MORPHINE 4 MG/1 ML VIAL IM STA (22:40)
[2019-11-08 23:04] LABS: Albumin 2.5 G/DL (3.4-5.0); Bilirubin,Total 0.5 MG/DL (0.2-1.0); Calcium 8.4 MG/DL (8.5-10.1); Osmolality,Calculated 293.4 MOS/KG (273-304); Total Protein 6.4 G/DL (6.4-8.3)
[2019-11-09 00:43] LABS: Basophils % 0.2 % (0.0-0.8); Hematocrit 36.4 VOL% (42.0-52.0); Hemoglobin 11.7 GM/DL (14.0-18.0); Immature Granulocytes % 0.8 %; Lymphocytes # 0.4 10*3/uL (1.4-4.0); Lymphocytes % 3.5 % (21.2-54.2); Mean Corpuscular HGB Conc 32.1 GM/DL (32-36); Mean Corpuscular Volume 80.4 FL (87-102); Mean Platelet Volume 8.8 FL (9.6-12.0); Monocytes % 3.8 % (1.7-12.7); Neutrophils % 91.7 % (38.7-73.9); Platelet Count 153 T/CUMM (130-400); Red Blood Count 4.53 MC/CUMM (3.8-5.5); Red Cell Distribution Width 23.1 % (9.3-17.3); White Blood Count 11.9 T/CUMM (4-12)
[2019-11-09 01:07] LABS: Apearance,Urine CLEAR (Clear); Bacteria,Urine Occasional /HPF (Few); Bilirubin,Urine Negative (Negative); Blood, Urine Negative (Negative); Glucose,Urine (UA) Negative (Negative); Hyaline Casts,Urine 1 /LPF (0-3); Ketones,Urine Negative (Negative); Mucus,Urine Occasional /LPF (Occasional); Nitrite,Urine Negative (Negative); Protein,Urine Negative; RBC,Urine 1 /HPF (0-4); Squamous Epithelial Cell,Urine Occasional /HPF (0-10); Urine Color Colorless (Yellow); Urine Specific Gravity 1.008 (1.001-1.035); Urine Urobilinogen < 2.0 EU/DL (0.2-1.0); WBC,Urine <1 /HPF (0-6)
[2019-11-09 01:12] LABS: Anisocytosis 2+; Hypochromasia Slight; Lymphocytes 3 % (20-55); Microcytosis 1+; Platelet Estimate Normal; Segmented Neutrophils 89 % (50-85); Total Cells Counted 100
[2019-11-09 01:13] LABS: Tear Drop Cells Slight
[2019-11-09 01:18] LABS: Ovalocytes Slight
[2019-11-09] MEDS ORDERED: ALBUTEROL/IPRATROPIUM 3 ML NEB RESP TX STA (01:32)
[2019-11-09] MEDS ORDERED: ONDANSETRON 4 MG/2 ML VIAL IV PRN (03:27)
[2019-11-09] MEDS ORDERED: MORPHINE 4 MG/1 ML VIAL IV PRN (03:27)
[2019-11-09 04:08] LABS: Basophils % 0.2 % (0.0-0.8); Hematocrit 36.1 VOL% (42.0-52.0); Hemoglobin 11.4 GM/DL (14.0-18.0); Immature Granulocytes % 0.6 %; Immature Granulocytes Absolute 0.06 #; Lymphocytes # 0.5 10*3/uL (1.4-4.0); Lymphocytes % 4.7 % (21.2-54.2); Mean Corpuscular HGB Conc 31.6 GM/DL (32-36); Mean Corpuscular Volume 81.1 FL (87-102); Mean Platelet Volume 8.8 FL (9.6-12.0); Monocytes % 3.8 % (1.7-12.7); Neutrophils % 90.7 % (38.7-73.9); Platelet Count 151 T/CUMM (130-400); Red Blood Count 4.45 MC/CUMM (3.8-5.5); White Blood Count 10.2 T/CUMM (4-12)
[2019-11-09 04:25] LABS: Calcium 8.4 MG/DL (8.5-10.1); Osmolality,Calculated 287.8 MOS/KG (273-304)
[2019-11-09 04:29] LABS: Band Neutrophils 5 % (0-10); Hypochromasia 1+; Lymphocytes 4 % (20-55); Microcytosis Slight; Ovalocytes Slight; Platelet Estimate Adequate; Segmented Neutrophils 88 % (50-85); Total Cells Counted 100
[2019-11-09] MEDS ORDERED: MORPHINE 4 MG/1 ML VIAL IV ONE (04:42)
[2019-11-09] MEDS: PIPERACILLIN/TAZOBACTAM 3,375 MG in SODIUM CHLORIDE 0.9% 100 ML IV SCH ×2 (05:02→16:30)
[2019-11-09] MEDS ORDERED: HydrOXYzine PAMOATE 25 MG CAPSULE PO PRN (07:21)
[2019-11-09] MEDS ORDERED: traZODone 50 MG TABLET PO PRN (07:21)
[2019-11-09] MEDS: ALBUTEROL/IPRATROPIUM 3 ML NEB RESP TX SCH ×4 (07:31→20:14)
[2019-11-09] MEDS: DORNASE ALFA 2.5 MG/2.5 ML VIAL RESP TX SCH ×2 (07:31→20:14)
[2019-11-09] MEDS ORDERED: FUROSEMIDE 40 MG/4 ML VIAL IV SCH (08:00)
[2019-11-09] MEDS ORDERED: ENOXAPARIN 30 MG/0.3 ML SYRINGE SUBCUT SCH (09:00)
[2019-11-09] MEDS ORDERED: DEXAMETHASONE 4 MG TABLET PO SCH ×2 (09:00→21:00)
[2019-11-09] MEDS ORDERED: PANTOPRAZOLE 40 MG TABLET PO SCH (09:00)
[2019-11-09 10:01] LABS: HIV Antigen/Antibody Result Nonreactive (Nonreactive)
[2019-11-09] MEDS: busPIRone 5 MG TABLET PO SCH ×2 (10:16→21:17)
[2019-11-09] MEDS: carvediloL 6.25 MG TABLET PO SCH ×2 (10:16→17:07)
[2019-11-09] MEDS: PANTOPRAZOLE 40 MG TABLET PO SCH (10:16)
[2019-11-09] MEDS: ALPRAZolam 0.5 MG TABLET PO PRN ×3 (10:17→21:24)
[2019-11-09] MEDS: ALLOPURINOL 300 MG TABLET PO SCH (10:17)
[2019-11-09] MEDS: ASPIRIN EC 81 MG TABLET PO SCH (10:17)
[2019-11-09] MEDS: LORATADINE 10 MG TABLET PO SCH (10:17)
[2019-11-09] MEDS: APIXABAN 2.5 MG TABLET PO SCH ×2 (10:29→21:17)
[2019-11-09] MEDS: LEVOFLOXACIN INJ 750 MG in PREMIX 1 EACH IV SCH (10:29)
[2019-11-09] MEDS: LOSARTAN 25 MG TABLET PO SCH (10:29)
[2019-11-09] MEDS ORDERED: FUROSEMIDE 20 MG/2 ML VIAL IV SCH (10:53)
[2019-11-09] MEDS ORDERED: DEXTROSE 50% 25 GM/50 ML VIAL IV PRN (10:58)
[2019-11-09] MEDS ORDERED: GLUCAGON 1 MG VIAL IM PRN (10:58)
[2019-11-09] MEDS: VANCOMYCIN INJ 1,500 MG in SODIUM CHLORIDE 0.9% 500 ML IV SCH (12:06)
[2019-11-09] MEDS: INSULIN REGULAR 100 UNIT/ML SUBCUT SCH ×3 (13:15→21:17)
[2019-11-09] MEDS: methylPREDNISolone SOD SUC 40 MG/1 ML VIAL IV SCH (13:15)
[2019-11-09] MEDS: ALBUMIN 25% 25 GM in PREMIX 1 EACH IV SCH (16:00)
[2019-11-09] MEDS: SKIN HEALING OINT (AQUAPHOR) 50 GM TUBE TOP SCH (16:00)
[2019-11-09] MEDS: FUROSEMIDE 40 MG/4 ML VIAL IV SCH (16:15)
[2019-11-09] MEDS: BUDESONIDE 0.5 MG/2 ML NEB RESP TX SCH (20:14)
[2019-11-09] MEDS: ARFORMOTEROL 15 MCG/2 ML NEB RESP TX SCH (20:14)
[2019-11-09] MEDS: GABAPENTIN 600 MG TABLET PO SCH (21:16)
[2019-11-09] MEDS: TAMSULOSIN 0.4 MG CAPSULE PO SCH (21:16)
[2019-11-10] MEDS: methylPREDNISolone SOD SUC 40 MG/1 ML VIAL IV SCH (00:19)
[2019-11-10] MEDS: PIPERACILLIN/TAZOBACTAM 3,375 MG in SODIUM CHLORIDE 0.9% 100 ML IV SCH ×3 (00:21→12:40)
[2019-11-10] MEDS: VANCOMYCIN INJ 1,500 MG in SODIUM CHLORIDE 0.9% 500 ML IV SCH ×2 (00:26→09:41)
[2019-11-10] MEDS: ALBUTEROL/IPRATROPIUM 3 ML NEB RESP TX SCH ×6 (01:12→19:10)
[2019-11-10] MEDS: ALBUMIN 25% 25 GM in PREMIX 1 EACH IV SCH ×2 (06:04→15:20)
[2019-11-10 06:23] LABS: Basophils % 0.1 % (0.0-0.8); Hemoglobin 10.6 GM/DL (14.0-18.0); Immature Granulocytes % 0.5 %; Immature Granulocytes Absolute 0.04 #; Lymphocytes # 0.6 10*3/uL (1.4-4.0); Lymphocytes % 6.9 % (21.2-54.2); Mean Corpuscular HGB Conc 31.2 GM/DL (32-36); Mean Corpuscular Volume 81.1 FL (87-102); Mean Platelet Volume 9.3 FL (9.6-12.0); Monocytes % 3.8 % (1.7-12.7); Neutrophils % 88.7 % (38.7-73.9); Platelet Count 171 T/CUMM (130-400); Red Blood Count 4.19 MC/CUMM (3.8-5.5); Red Cell Distribution Width 22.4 % (9.3-17.3); White Blood Count 8.1 T/CUMM (4-12)
[2019-11-10 06:47] LABS: Albumin 2.4 G/DL (3.4-5.0); Bilirubin,Total 0.8 MG/DL (0.2-1.0); Osmolality,Calculated 295.3 MOS/KG (273-304); Total Protein 6.3 G/DL (6.4-8.3)
[2019-11-10 06:56] LABS: Hypochromasia 1+; Microcytosis Slight; Platelet Estimate Adequate
[2019-11-10] MEDS: BUDESONIDE 0.5 MG/2 ML NEB RESP TX SCH ×2 (07:40→19:10)
[2019-11-10] MEDS: ARFORMOTEROL 15 MCG/2 ML NEB RESP TX SCH ×2 (07:40→19:10)
[2019-11-10] MEDS: DORNASE ALFA 2.5 MG/2.5 ML VIAL RESP TX SCH ×2 (07:40→19:26)
[2019-11-10] MEDS: INSULIN REGULAR 100 UNIT/ML SUBCUT SCH ×4 (08:52→21:39)
[2019-11-10] MEDS ORDERED: methylPREDNISolone SOD SUC 40 MG/1 ML VIAL IV SCH (09:37)
[2019-11-10] MEDS: LORATADINE 10 MG TABLET PO SCH (09:40)
[2019-11-10] MEDS: ASPIRIN EC 81 MG TABLET PO SCH (09:40)
[2019-11-10] MEDS: LOSARTAN 25 MG TABLET PO SCH (09:40)
[2019-11-10] MEDS: ALPRAZolam 0.5 MG TABLET PO PRN ×2 (09:40→21:33)
[2019-11-10] MEDS: busPIRone 5 MG TABLET PO SCH (09:40)
[2019-11-10] MEDS: carvediloL 6.25 MG TABLET PO SCH (09:40)
[2019-11-10] MEDS: APIXABAN 2.5 MG TABLET PO SCH (09:41)
[2019-11-10] MEDS: ALLOPURINOL 300 MG TABLET PO SCH (09:41)
[2019-11-10] MEDS: PANTOPRAZOLE 40 MG TABLET PO SCH (09:41)
[2019-11-10] MEDS: FUROSEMIDE 40 MG/4 ML VIAL IV SCH ×2 (09:41→16:30)
[2019-11-10] MEDS: LEVOFLOXACIN INJ 750 MG in PREMIX 1 EACH IV SCH (09:41)
[2019-11-10] MEDS: SKIN HEALING OINT (AQUAPHOR) 50 GM TUBE TOP SCH (10:25)
[2019-11-10] MEDS ORDERED: carvediloL 12.5 MG TABLET PO SCH (21:00)
[2019-11-10] MEDS: GABAPENTIN 600 MG TABLET PO SCH (21:27)
[2019-11-10] MEDS: AMOXICILLIN 500 MG CAPSULE PO SCH (21:28)
[2019-11-10] MEDS: TAMSULOSIN 0.4 MG CAPSULE PO SCH (21:28)
[2019-11-10] MEDS: SULFAMETHOX/TRIMETHOPRIM 800-160 MG TABLET PO SCH (21:28)
[2019-11-10] MEDS: LINEZOLID INJ 600 MG in PREMIX 1 EACH IV SCH (21:29)
[2019-11-11] MEDS: ALBUTEROL/IPRATROPIUM 3 ML NEB RESP TX SCH ×3 (00:19→07:23)
[2019-11-11 05:10] LABS: Basophils % 0.3 % (0.0-0.8); Eosinophils % 0.1 % (0.00-10.9); Hematocrit 36.2 VOL% (42.0-52.0); Hemoglobin 11.4 GM/DL (14.0-18.0); Immature Granulocytes % 1.1 %; Immature Granulocytes Absolute 0.09 #; Lymphocytes % 12.4 % (21.2-54.2); Mean Corpuscular HGB Conc 31.5 GM/DL (32-36); Mean Corpuscular Volume 81.9 FL (87-102); Mean Platelet Volume 9.1 FL (9.6-12.0); Monocytes % 5.2 % (1.7-12.7); Neutrophils % 80.9 % (38.7-73.9); Platelet Count 208 T/CUMM (130-400); Red Blood Count 4.42 MC/CUMM (3.8-5.5); Red Cell Distribution Width 22.7 % (9.3-17.3); White Blood Count 7.9 T/CUMM (4-12)
[2019-11-11 05:38] LABS: Osmolality,Calculated 292.1 MOS/KG (273-304)
[2019-11-11 06:15] LABS: Hypochromasia 1+; Microcytosis 1+; Platelet Estimate Normal; Polychromasia Few
[2019-11-11] MEDS: AMOXICILLIN 500 MG CAPSULE PO SCH ×3 (06:30→21:41)
[2019-11-11] MEDS: ARFORMOTEROL 15 MCG/2 ML NEB RESP TX SCH ×2 (07:23→19:48)
[2019-11-11] MEDS: BUDESONIDE 0.5 MG/2 ML NEB RESP TX SCH ×2 (07:23→19:48)
[2019-11-11] MEDS: ALBUMIN 25% 25 GM in PREMIX 1 EACH IV SCH ×2 (07:41→15:03)
[2019-11-11] MEDS: DORNASE ALFA 2.5 MG/2.5 ML VIAL RESP TX SCH ×2 (07:50→19:48)
[2019-11-11] MEDS ORDERED: LEVOFLOXACIN INJ 500 MG in PREMIX 1 EACH IV SCH (08:00)
[2019-11-11] MEDS: ALLOPURINOL 300 MG TABLET PO SCH (09:28)
[2019-11-11] MEDS: LOSARTAN 25 MG TABLET PO SCH (09:28)
[2019-11-11] MEDS: carvediloL 25 MG TABLET PO SCH (09:28)
[2019-11-11] MEDS: ASPIRIN EC 81 MG TABLET PO SCH (09:28)
[2019-11-11] MEDS: SULFAMETHOX/TRIMETHOPRIM 800-160 MG TABLET PO SCH ×2 (09:28→21:41)
[2019-11-11] MEDS: PANTOPRAZOLE 40 MG TABLET PO SCH (09:28)
[2019-11-11] MEDS: LORATADINE 10 MG TABLET PO SCH (09:28)
[2019-11-11] MEDS: INSULIN REGULAR 100 UNIT/ML SUBCUT SCH ×4 (09:29→21:59)
[2019-11-11] MEDS: LINEZOLID INJ 600 MG in PREMIX 1 EACH IV SCH ×2 (09:30→21:42)
[2019-11-11] MEDS: ALPRAZolam 0.5 MG TABLET PO PRN ×2 (09:39→15:29)
[2019-11-11] MEDS: ACETAMINOPHEN 325 MG TABLET PO PRN (11:57)
[2019-11-11] MEDS: SKIN HEALING OINT (AQUAPHOR) 50 GM TUBE TOP SCH (12:55)
[2019-11-11] MEDS: ALBUTEROL 1.25 MG/3 ML NEB RESP TX SCH ×2 (13:30→19:48)
[2019-11-11] MEDS ORDERED: KETOROLAC 15 MG/1 ML VIAL IV ONE (15:17)
[2019-11-11] MEDS ORDERED: FLUCONAZOLE 200 MG TABLET PO ONE (15:17)
[2019-11-11] MEDS ORDERED: methylPREDNISolone SOD SUC 40 MG/1 ML VIAL IV ONE (15:18)
[2019-11-11] MEDS ORDERED: FUROSEMIDE 20 MG/2 ML VIAL IV ONE (15:37)
[2019-11-11] MEDS: APIXABAN 2.5 MG TABLET PO SCH (21:41)
[2019-11-11] MEDS: GABAPENTIN 600 MG TABLET PO SCH (21:41)
[2019-11-11] MEDS: TAMSULOSIN 0.4 MG CAPSULE PO SCH (21:41)
[2019-11-12] MEDS: ALBUTEROL 1.25 MG/3 ML NEB RESP TX SCH ×4 (00:20→19:30)
[2019-11-12] MEDS: AMOXICILLIN 500 MG CAPSULE PO SCH ×3 (05:41→21:59)
[2019-11-12 06:11] LABS: Basophils % 0.2 % (0.0-0.8); Hematocrit 34.9 VOL% (42.0-52.0); Hemoglobin 10.9 GM/DL (14.0-18.0); Immature Granulocytes % 1.4 %; Immature Granulocytes Absolute 0.07 #; Lymphocytes # 0.4 10*3/uL (1.4-4.0); Mean Corpuscular HGB Conc 31.2 GM/DL (32-36); Mean Corpuscular Volume 81.9 FL (87-102); Mean Platelet Volume 8.9 FL (9.6-12.0); Monocytes % 3.1 % (1.7-12.7); Neutrophils % 86.3 % (38.7-73.9); Platelet Count 200 T/CUMM (130-400); Red Blood Count 4.26 MC/CUMM (3.8-5.5); Red Cell Distribution Width 22.3 % (9.3-17.3); White Blood Count 4.9 T/CUMM (4-12)
[2019-11-12 06:33] LABS: Osmolality,Calculated 287.1 MOS/KG (273-304)
[2019-11-12] MEDS: ARFORMOTEROL 15 MCG/2 ML NEB RESP TX SCH ×2 (07:49→19:30)
[2019-11-12] MEDS: BUDESONIDE 0.5 MG/2 ML NEB RESP TX SCH ×2 (07:49→19:30)
[2019-11-12] MEDS: DORNASE ALFA 2.5 MG/2.5 ML VIAL RESP TX SCH ×2 (08:03→20:00)
[2019-11-12] MEDS: INSULIN REGULAR 100 UNIT/ML SUBCUT SCH ×4 (08:48→22:00)
[2019-11-12] MEDS: ALPRAZolam 0.5 MG TABLET PO PRN ×2 (09:02→21:59)
[2019-11-12] MEDS: SULFAMETHOX/TRIMETHOPRIM 800-160 MG TABLET PO SCH ×2 (09:02→21:59)
[2019-11-12] MEDS: ASPIRIN EC 81 MG TABLET PO SCH (09:03)
[2019-11-12] MEDS: APIXABAN 2.5 MG TABLET PO SCH ×2 (09:03→21:59)
[2019-11-12] MEDS: PANTOPRAZOLE 40 MG TABLET PO SCH (09:03)
[2019-11-12] MEDS: LORATADINE 10 MG TABLET PO SCH (09:03)
[2019-11-12] MEDS: LINEZOLID INJ 600 MG in PREMIX 1 EACH IV SCH ×2 (09:03→22:03)
[2019-11-12] MEDS: SKIN HEALING OINT (AQUAPHOR) 50 GM TUBE TOP SCH (09:03)
[2019-11-12] MEDS: ALLOPURINOL 300 MG TABLET PO SCH (09:03)
[2019-11-12] MEDS: GABAPENTIN 600 MG TABLET PO SCH (21:59)
[2019-11-12] MEDS: carvediloL 25 MG TABLET PO SCH (21:59)
[2019-11-12] MEDS: TAMSULOSIN 0.4 MG CAPSULE PO SCH (22:00)
[2019-11-13] MEDS: ALBUTEROL 1.25 MG/3 ML NEB RESP TX SCH ×4 (00:01→20:45)
[2019-11-13] MEDS ORDERED: ALBUTEROL 2.5 MG/3 ML NEB RESP TX PRN (00:40)
[2019-11-13] MEDS: AMOXICILLIN 500 MG CAPSULE PO SCH (05:08)
[2019-11-13 06:26] LABS: Basophils % 0.2 % (0.0-0.8); Eosinophils % 0.5 % (0.00-10.9); Hematocrit 35.3 VOL% (42.0-52.0); Hemoglobin 11.3 GM/DL (14.0-18.0); Immature Granulocytes % 1.7 %; Immature Granulocytes Absolute 0.11 #; Lymphocytes # 0.8 10*3/uL (1.4-4.0); Lymphocytes % 12.5 % (21.2-54.2); Mean Platelet Volume 8.9 FL (9.6-12.0); Monocytes % 4.9 % (1.7-12.7); Neutrophils % 80.2 % (38.7-73.9); Platelet Count 247 T/CUMM (130-400); Red Blood Count 4.41 MC/CUMM (3.8-5.5); Red Cell Distribution Width 22.5 % (9.3-17.3); White Blood Count 6.5 T/CUMM (4-12)
[2019-11-13 06:47] LABS: Calcium 8.9 MG/DL (8.5-10.1); Osmolality,Calculated 274.1 MOS/KG (273-304)
[2019-11-13] MEDS: BUDESONIDE 0.5 MG/2 ML NEB RESP TX SCH ×2 (07:06→20:45)
[2019-11-13] MEDS: ARFORMOTEROL 15 MCG/2 ML NEB RESP TX SCH ×2 (07:06→20:45)
[2019-11-13] MEDS: DORNASE ALFA 2.5 MG/2.5 ML VIAL RESP TX SCH ×2 (07:28→20:45)
[2019-11-13] MEDS ORDERED: FUROSEMIDE 40 MG/4 ML VIAL IV ONE (08:10)
[2019-11-13 08:20] LABS: ABG Base Excess 3.4 MMOL/L (-2.5-2.5); ABG HCO3 27.3 MMOL/L (20-26); ABG Oxygen Saturation 91.7 % (95-100); ABG PCO2 36.8 MM HG (35-48); ABG PH 7.473 (7.35-7.45); ABG PO2 62.1 MM HG (80-95)
[2019-11-13] MEDS: LINEZOLID INJ 600 MG in PREMIX 1 EACH IV SCH (08:36)
[2019-11-13] MEDS: PANTOPRAZOLE 40 MG TABLET PO SCH (08:38)
[2019-11-13] MEDS: INSULIN REGULAR 100 UNIT/ML SUBCUT SCH ×4 (08:38→21:07)
[2019-11-13] MEDS: APIXABAN 2.5 MG TABLET PO SCH ×2 (08:38→21:06)
[2019-11-13] MEDS: carvediloL 25 MG TABLET PO SCH ×2 (08:39→21:06)
[2019-11-13] MEDS: ASPIRIN EC 81 MG TABLET PO SCH (08:39)
[2019-11-13] MEDS: SULFAMETHOX/TRIMETHOPRIM 800-160 MG TABLET PO SCH (08:39)
[2019-11-13] MEDS: LORATADINE 10 MG TABLET PO SCH (08:39)
[2019-11-13] MEDS: ALLOPURINOL 300 MG TABLET PO SCH (08:39)
[2019-11-13] MEDS: ALPRAZolam 0.5 MG TABLET PO PRN (08:39)
[2019-11-13] MEDS ORDERED: MEROPENEM 500 MG in SODIUM CHLORIDE 0.9% 100 ML IV SCH (09:00)
[2019-11-13] MEDS ORDERED: methylPREDNISolone SOD SUC 40 MG/1 ML VIAL IV SCH (09:00)
[2019-11-13] MEDS ORDERED: KETOROLAC 30 MG/1 ML VIAL IV ONE (10:09)
[2019-11-13 10:27] VITALS: BP 103/77
[2019-11-13] MEDS: PENICILLIN G POTASSIUM INJ 5,000,000 UNIT in SODIUM CHLORIDE 0.9% 100 ML IV SCH ×2 (12:12→19:16)
[2019-11-13] MEDS ORDERED: CEFTAROLINE 600 MG in SODIUM CHLORIDE 0.9% 100 ML IV SCH (13:00)
[2019-11-13] MEDS: DOXYCYCLINE HYCLATE 100 MG CAPSULE PO SCH ×2 (14:11→21:07)
[2019-11-13] MEDS: IMIPENEM/CILASTATIN 500 MG in SODIUM CHLORIDE 0.9% 100 ML IV SCH ×2 (14:12→19:53)
[2019-11-13 14:26] LABS: QuantiFERON-Tb Gold Pl Negative (Negative); TB2 Ag Minus Result 0 IU/mL
[2019-11-13] MEDS: SODIUM CHLORIDE 0.9% IV SCH (15:00)
[2019-11-13] MEDS: AMIKACIN IV SCH (15:00)
[2019-11-13] MEDS: ENOXAPARIN 40 MG/0.4 ML SYRINGE SUBCUT SCH (15:18)
[2019-11-13] MEDS: VANCOMYCIN INJ 1,500 MG in SODIUM CHLORIDE 0.9% 500 ML IV SCH (16:40)
[2019-11-13] MEDS: TAMSULOSIN 0.4 MG CAPSULE PO SCH (21:06)
[2019-11-13] MEDS: GABAPENTIN 600 MG TABLET PO SCH (21:07)
[2019-11-14] MEDS: IMIPENEM/CILASTATIN 500 MG in SODIUM CHLORIDE 0.9% 100 ML IV SCH ×2 (01:07→09:15)
[2019-11-14] MEDS: PENICILLIN G POTASSIUM INJ 5,000,000 UNIT in SODIUM CHLORIDE 0.9% 100 ML IV SCH ×3 (01:07→14:29)
[2019-11-14] MEDS: ALBUTEROL 1.25 MG/3 ML NEB RESP TX SCH ×4 (02:06→20:00)
[2019-11-14 03:10] LABS: Allen Test Positive; Pt O2 Delivery Device Ventilator
[2019-11-14 03:11] LABS: ABG Base Excess 2.7 MMOL/L (-2.5-2.5); ABG HCO3 26.9 MMOL/L (20-26); ABG Oxygen Saturation 98.2 % (95-100); ABG PCO2 45.6 MM HG (35-48); ABG PH 7.398 (7.35-7.45); ABG TCO2 25.3 MMOL/L (23-27)
[2019-11-14] MEDS: AMIKACIN IV SCH (03:53)
[2019-11-14] MEDS: SODIUM CHLORIDE 0.9% IV SCH (03:53)
[2019-11-14] MEDS: VANCOMYCIN INJ 1,500 MG in SODIUM CHLORIDE 0.9% 500 ML IV SCH (04:09)
[2019-11-14 04:44] LABS: Basophils % 0.2 % (0.0-0.8); Eosinophils % 0.5 % (0.00-10.9); Hematocrit 33.2 VOL% (42.0-52.0); Hemoglobin 10.2 GM/DL (14.0-18.0); Immature Granulocytes % 1.2 %; Immature Granulocytes Absolute 0.05 #; Lymphocytes # 0.7 10*3/uL (1.4-4.0); Lymphocytes % 17.2 % (21.2-54.2); Mean Corpuscular HGB Conc 30.7 GM/DL (32-36); Mean Corpuscular Volume 83.2 FL (87-102); Mean Platelet Volume 7.9 FL (9.6-12.0); Neutrophils % 75.9 % (38.7-73.9); Platelet Count 187 T/CUMM (130-400); Red Blood Count 3.99 MC/CUMM (3.8-5.5); White Blood Count 4.2 T/CUMM (4-12)
[2019-11-14 05:09] LABS: Albumin 2.6 G/DL (3.4-5.0); Bilirubin,Total 0.6 MG/DL (0.2-1.0); Calcium 8.5 MG/DL (8.5-10.1); Osmolality,Calculated 287.4 MOS/KG (273-304); Total Protein 6.8 G/DL (6.4-8.3)
[2019-11-14 05:10] LABS: % Iron Saturation 10.2 % (18-50); Ferritin 138.1 ng/ml (26-388)
[2019-11-14 05:50] LABS: Sedimentation Rate-Westergren 74 MM/HR (0-20)
[2019-11-14 05:52] LABS: Immunoglobulin A 157 MG/DL (70-400); Immunoglobulin G 824 MG/DL (700-1600); Immunoglobulin M 57 MG/DL (40-230)
[2019-11-14 05:56] LABS: Folate 13.5 NG/ML (5.4-24.0); Vitamin B12 278 PG/ML (211-911)
[2019-11-14] MEDS: SKIN HEALING OINT (AQUAPHOR) 50 GM TUBE TOP SCH ×2 (06:52→09:44)
[2019-11-14] MEDS: INSULIN REGULAR 100 UNIT/ML SUBCUT SCH ×3 (08:30→16:35)
[2019-11-14] MEDS: ARFORMOTEROL 15 MCG/2 ML NEB RESP TX SCH ×2 (08:44→20:00)
[2019-11-14] MEDS ORDERED: CHOLECALCIFEROL 1,000 UNIT TABLET PO SCH (09:00)
[2019-11-14] MEDS: APIXABAN 2.5 MG TABLET PO SCH (09:10)
[2019-11-14] MEDS: DOXYCYCLINE HYCLATE 100 MG CAPSULE PO SCH (09:10)
[2019-11-14] MEDS: ALLOPURINOL 300 MG TABLET PO SCH (09:10)
[2019-11-14] MEDS: ASPIRIN EC 81 MG TABLET PO SCH (09:10)
[2019-11-14] MEDS: carvediloL 25 MG TABLET PO SCH (09:10)
[2019-11-14] MEDS: LORATADINE 10 MG TABLET PO SCH (09:10)
[2019-11-14] MEDS: PANTOPRAZOLE 40 MG TABLET PO SCH (09:10)
[2019-11-14 09:34] LABS: Hemoglobin A1 (Alkaline) 97.3 % (96.5-98.5); Hemoglobin A2 (Alkaline) 2.7 % (1.5-3.5)
[2019-11-14] MEDS: BUDESONIDE 0.5 MG/2 ML NEB RESP TX SCH ×2 (10:50→20:00)
[2019-11-14] MEDS: DORNASE ALFA 2.5 MG/2.5 ML VIAL RESP TX SCH ×2 (10:53→20:16)
[2019-11-14] MEDS ORDERED: LACTOBACILLUS ACIDOPHILUS/BULGARICUS CAPLET PO SCH (11:35)
[2019-11-14] MEDS ORDERED: CHOLESTYRAMINE 4 GM PACK PO SCH (11:35)
[2019-11-14] MEDS ORDERED: cefTAZidime 1,000 MG in SYRINGE 1 EACH IV SCH (12:00)
[2019-11-14] MEDS: ENOXAPARIN 40 MG/0.4 ML SYRINGE SUBCUT SCH (14:28)
[2019-11-14] MEDS: ALPRAZolam 0.5 MG TABLET PO PRN (14:28)
[2019-11-14] MEDS: ACETAMINOPHEN 325 MG TABLET PO PRN (17:27)
[2019-11-15] MEDS ORDERED: VANCOMYCIN INJ 1,500 MG in SODIUM CHLORIDE 0.9% 500 ML IV SCH (04:00)
[2019-11-15 14:51] LABS: Myeloperoxidase Antibody < 0.2 U
[2019-11-17 13:06] LABS: Immunoglobulin E 17.1 kU/L (<= 214)
[2019-11-17 14:36] LABS: Immunoglobulin D < 1 mg/dL (<=10)
[2019-11-17 15:33] LABS: % CD4 (T Cells) 41 % (32-64); % CD8 (T Cells) 25 % (11-40); 4/8 Ratio 1.7 (>=0.9)
== END 2019-11-14 20:40 | disposition hospice, home (50) | DRG 871 ==
LOC: N.ED 21:24 → N.EDINP 11-09 03:27 → N.TELEN 11-09 04:21 → N.CC 11-13 09:45
PROVIDERS: ADMIT Hospitalist; ATTEND Hospitalist